=== PATIENT | male | born 1995 | race Caucasian/White ===

== ENCOUNTER 2019-11-06 17:33 | Emergency (ER) | payer OTHER ==
[2019-11-06] MEDS ORDERED: Lidocaine 1% 10 ML MDV INJECT ONE (18:10)
--- NOTE | 2019-11-06 18:10 | EDM.PDOC ---
ED HPI GENERAL MEDICAL PROBLEM - General Chief Complaint: Skin Complaint Stated Complaint: CYST ON FACE Time Seen by Provider: 11/06/19 18:06 Source of Information: Reports: Patient History Limitations: Reports: No Limitations - History of Present Illness INITIAL COMMENTS - FREE TEXT/NARRATIVE: 24-year-old male presents to the ED with a large infected suspect sebaceous cyst left side of his face just lateral and inferior to his left eye. He states is been present for about 6 days but has become red and more painful over the last 48 hours. 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 Onset: Gradual Onset Date: 10/31/19 Duration: Day(s):, Getting Worse Location: Reports: Face Quality: Reports: Ache (Infected sebaceous cyst inferior lateral to his left eye.), Throbbing Severity: Moderate Improves with: Reports: None Worsens with: Reports: None Context: Reports: Other (Spontaneous occurrence.). Denies: Activity, Exercise, Lifting, Sick Contact, Trauma Associated Symptoms: Reports: No Other Symptoms Treatments BIN PILER: Reports: NSAIDS, Other (see below) Other Treatments BIN PILER: none Left Face/Facial Pain Score (Numeric/FACES): 4 - Related Data Allergies Allergy/AdvReac Type Severity Reaction Status Date / Time No Known Allergies Allergy Verified 11/06/19 17:54 Home Meds: Home Meds Doxycycline [Vibra-Tabs] 100 mg PO Q12HR #20 tab 11/06/19 [Rx] lamoTRIgine [Lamictal] 300 mg PO DAILY 11/06/19 [History] Past Medical History Dermatologic History: Reports: Other (See Below) (Severe acne involving the face and back treated with Accutane in the past.) Social & Family History - Living Situation & Occupation Living situation: Reports: Single Occupation: Employed ED ROS GENERAL - Review of Systems Review Of Systems: See Below Constitutional: Denies: Fever, Chills, Malaise, Weakness, Fatigue, Decreased Appetite, Weight Loss HEENT: Reports: Other Respiratory: Reports: No Symptoms (Infected sebaceous cyst left face inferior lateral to his left eye) Cardiovascular: Reports: No Symptoms Endocrine: Reports: No Symptoms GI/Abdominal: Reports: No Symptoms : Reports: No Symptoms Musculoskeletal: Reports: No Symptoms Skin: Reports: Other (Problems with) Neurological: Reports: No Symptoms ( grade 4 cystic acne in the past treated with Accutane.) Psychiatric: Reports: No Symptoms Hematologic/Lymphatic: Reports: No Symptoms Immunologic: Reports: No Symptoms ED EXAM, SKIN/RASH Exam: See Below Exam Limited By: No Limitations General Appearance: Alert, WD/WN, No Apparent Distress, Other (Temperature is 37.1 with a heart rate of 72 and sinus respiratory to 20 with O2 sats of 98% room air BP 1 3468.) Eye Exam: Bilateral Eye: Normal Inspection, PERRL Nose: Normal Inspection Throat/Mouth: Normal Inspection, Normal Lips, Normal Oropharynx Head: Facial Swelling (And has an infected sebaceous cyst inferior lateral to his left eye that is approximately 2 cm in diameter red) Neck: Normal Inspection Respiratory/Chest: No Respiratory Distress Cardiovascular: Normal Peripheral Pulses, Regular Rate, Rhythm, No Edema, No Gallop, No Murmur ED SKIN PROCEDURES - I&D Skin Prep: Chlorhexidine (Hibiciens) Local Anesthesia: Lidocaine: 1% Plain Local Anesthetic Volume: 2cc Area Incised With: 15 Blade Drainage: Purulent, Other (Debris from infected sebaceous cyst i.e. sebum.) Probed to Break Up Loculations: Yes Packed With: None Sterile Dressing: Adhesive Dressing Complications: No Course - Vital Signs Last Recorded V/S: Last Vital Signs Temp 37.1 C 11/06/19 17:57 Pulse 72 11/06/19 17:57 Resp 20 11/06/19 17:57 BP 134/68 11/06/19 17:57 Pulse Ox 98 11/06/19 17:57 - Orders/Labs/Meds Orders: Active Orders 24 hr Category Date Time Status CULTURE WOUND [RM] Stat Lab 11/06/19 19:16 Ordered Meds: Medications Discontinued Medications Generic Name Dose Route Start Last Admin Trade Name Freq PRN Reason Stop Dose Admin Lidocaine HCl 10 ml 11/06/19 18:10 11/06/19 19:10 Xylocaine 1% INJECT 11/06/19 18:11 10 ml ONETIME ONE Administration - Radiology Interpretation Free Text/Narrative:: 24-year-old male presents to the ED for evaluation of painful red swollen area inferior lateral to his left eye that is gradually enlarged over the last 6 days and become more painful and red the last 2 days. Examination. Reveals that likely is an infected sebaceous cyst. It is going to require incision and drainage. Plan will be to anesthetize it with lidocaine 1% and open it up to allow drainage to occur. He will then be placed on antibiotic doxycycline 100 mg twice daily for the next 14 days. - Re-Assessments/Exams Free Text/Narrative Re-Assessment/Exam: 11/06/19 19:22 and underwent incision and drainage of infected sebaceous cyst inferior lateral to his left eye. Removed approximately 5 mils of infected sebum cereal with pus. Cultures were obtained. The wound will be left to heal by primary intention. It is less than 1/4 inch in length. He will be placed on doxycycline 100 mg twice daily for the next 10 days. Departure - Departure Time of Disposition: 19:22 Disposition: Home, Self-Care 01 Condition: Fair Clinical Impression: Infected sebaceous cyst of skin - Discharge Information *PRESCRIPTION DRUG MONITORING PROGRAM REVIEWED*: Not Applicable *COPY OF PRESCRIPTION DRUG MONITORING REPORT IN PATIENT [place]: Not Applicable Prescriptions: Doxycycline [Vibra-Tabs] 100 mg PO Q12HR #20 tab Instructions: Epidermal Cyst, [id number] Referrals: PCP,Not In Area [Primary Care Provider] - Forms: ED Department Discharge Additional Instructions: Evaluation in the emergency room today in regards to an infected sebaceous cyst inferior and lateral to your left eye. This is gradually enlarged and become infected over the last 6 days. The area was anesthetized and a 3 mm incision was made in the middle of the cyst and I was able to drain a teaspoon of infected sebaceous material with pus. You will need to take Motrin 600 mg every 6 hours needed to reduce pain and inflammation. Doxycycline 100 mg twice daily for the next 10 days to clear up infection. It should look much improved with rest redness and swelling over the next 48 to 72 hours. Suggest placing a small amount of antibiotic ointment such as bacitracin or Polysporin on the wound after showering daily. Return to medical care if any further problems occur. Sepsis Event Note (ED) - Evaluation Sepsis Screening Result: No Definite Risk - Focused Exam Vital Signs: Vital Signs Temp Pulse Resp BP Pulse Ox 11/06/19 17:57 37.1 C 72 20 134/68 98 - My Orders Last 24 Hours: My Active Orders 11/06/19 19:16 CULTURE WOUND [RM] Stat - Assessment/Plan Last 24 Hours: My Active Orders 11/06/19 19:16 CULTURE WOUND [RM] Stat
== END 2019-11-06 19:38 | disposition home or self-care (01) ==
LOC: JD.ED 17:33
DX: L72.3 Sebaceous cyst (principal)
CPT/HCPCS: 10060; 87070; 99283; J2001

== ENCOUNTER 2020-07-07 08:13 | Emergency (ER) | payer OTHER ==
[2020-07-07] MEDS ORDERED: Lidocaine/EPINEPHrine/Tetracaine Soln 1 ML TOP ONE (08:48)
--- NOTE | 2020-07-07 08:51 | EDM.PDOC ---
ED HPI GENERAL MEDICAL PROBLEM - General Chief Complaint: Skin Complaint Stated Complaint: L EYE SWOLLEN/SKIN COMPLAINT Time Seen by Provider: 07/07/20 08:32 Source of Information: Reports: Patient History Limitations: Reports: No Limitations - History of Present Illness INITIAL COMMENTS - FREE TEXT/NARRATIVE: The patient presents with left sided facial swelling and eyelid swelling. He first noticed a problem on with a small zit. The swelling has increased and moved to his eyelids. He woke up this morning and could barely see. He has no fever or chills. He has no other symptoms. Onset: Gradual Duration: Day(s): Location: Reports: Face Quality: Reports: Sharp Severity: Mild Improves with: Reports: None Worsens with: Reports: None Associated Symptoms: Reports: No Other Symptoms Left Face/Facial Pain Score (Numeric/FACES): 7 - Related Data Allergies Allergy/AdvReac Type Severity Reaction Status Date / Time No Known Allergies Allergy Verified 07/07/20 08:32 Home Meds: Home Meds lamoTRIgine [Lamictal] 300 mg PO DAILY 11/06/19 [History] cephALEXin [Keflex] 500 mg PO QID #40 cap 07/07/20 [Rx] Past Medical History Cardiovascular History: Reports: None Respiratory History: Reports: None Gastrointestinal History: Reports: None Genitourinary History: Reports: None Musculoskeletal History: Reports: None Neurological History: Reports: Seizure Psychiatric History: Reports: None Endocrine/Metabolic History: Reports: None Hematologic History: Reports: None Immunologic History: Reports: None Oncologic (Cancer) History: Reports: None Dermatologic History: Reports: Other (See Below) (Severe acne involving the face and back treated with Accutane in the past.) Other Dermatologic History: Sebaceous Cyst to left side of face lanced on 11/06/19. - Infectious Disease History Infectious Disease History: Reports: None - Past Surgical History HEENT Surgical History: Reports: Oral Surgery Social & Family History - Tobacco Use Tobacco Use Status *Q: Never Tobacco User - Caffeine Use Caffeine Use: Reports: Soda - Recreational Drug Use Recreational Drug Use: No - Living Situation & Occupation Living situation: Reports: Single Occupation: Employed ED ROS GENERAL - Review of Systems Review Of Systems: See Below Constitutional: Reports: No Symptoms HEENT: Reports: Other (Left eyelid edema and redness and swelling to the left lateral eye) Respiratory: Reports: No Symptoms Cardiovascular: Reports: No Symptoms Endocrine: Reports: No Symptoms GI/Abdominal: Reports: No Symptoms : Reports: No Symptoms Musculoskeletal: Reports: No Symptoms ED EXAM, SKIN/RASH Exam: See Below Exam Limited By: No Limitations General Appearance: Alert, No Apparent Distress Eye Exam: Left Eye: Other (Edema of he upper and lower eyelid) Ears: Normal External Exam Nose: Normal Inspection Head: Other (Erythema and edema to the left side of the face lateral to the left eye) Neck: Normal Inspection Respiratory/Chest: No Respiratory Distress Extremities: Normal Inspection Neurological: Alert, Oriented, No Motor/Sensory Deficits ED SKIN PROCEDURES - I&D Site: Left face Skin Prep: Other (Chlorprep) Local Anesthesia: Lidocaine: Other (LET) Area Incised With: 11 Blade Drainage: Bloody, Small Amount Probed to Break Up Loculations: No Complications: No Course - Vital Signs Last Recorded V/S: Last Vital Signs Temp 97.9 F 07/07/20 08:30 Pulse 66 07/07/20 08:30 Resp 16 07/07/20 08:30 BP 143/89 H 07/07/20 08:30 Pulse Ox 97 07/07/20 08:30 - Orders/Labs/Meds Meds: Medications Discontinued Medications Generic Name Dose Route Start Last Admin Trade Name Ember PRN Reason Stop Dose Admin Lidocaine/Tetracaine 1 ml 07/07/20 08:48 07/07/20 09:10 Lidocaine/Epinephrine/Tetracaine Soln 1 Ml TOP 07/07/20 08:49 1 ml ONETIME ONE Administration - Re-Assessments/Exams Free Text/Narrative Re-Assessment/Exam: 07/07/20 08:54 I used the US and there is an area with some fluid. I will put some LET of that area and see if I can drain some fluid. 07/07/20 09:48 I used an 11 blade to open up the wound. There was very little drainage. I will get him on some kelfex. Departure - Departure Time of Disposition: 09:50 Disposition: Home, Self-Care 01 Condition: Good Clinical Impression: Abscess - Discharge Information *PRESCRIPTION DRUG MONITORING PROGRAM REVIEWED*: Not Applicable *COPY OF PRESCRIPTION DRUG MONITORING REPORT IN PATIENT [place]: Not Applicable Prescriptions: cephALEXin [Keflex] 500 mg PO QID #40 cap Referrals: PCP,Not In Area [Primary Care Provider] - Khang Marquis MD [Physician] - 1 Week Forms: ED Department Discharge Additional Instructions: Clean the area with warm soapy water 2 times per day and apply antibiotic ointment after. Put warm compresses on your face 3 times per day for 5 days. Try to sleep with your head up at night. That will help with the swelling. It will take 2 to 3 days for the antibiotics to start working. If you do not see an improvement by 4 to 5 days please return or follow up with our general surgeon Dr Marquis. Sepsis Event Note (ED) - Evaluation Sepsis Screening Result: No Definite Risk - Focused Exam Vital Signs: Vital Signs Temp Pulse Resp BP Pulse Ox 07/07/20 08:30 97.9 F 66 16 143/89 H 97
== END 2020-07-07 10:09 | disposition home or self-care (01) ==
LOC: JD.ED 08:13
DX: L02.01 Cutaneous abscess of face (principal); H02.845 Edema of left lower eyelid; H02.844 Edema of left upper eyelid; R56.9 Unspecified convulsions; Z79.899 Other long term (current) drug therapy
CPT/HCPCS: 10060; 99283; 99283-25